=== PATIENT | female | born 1990 | race Hispanic/Latino ===

== ENCOUNTER 2017-09-25 01:16 | Emergency (ER) | payer BC ==
[~2017-09-25] VITALS: Ht 162.6 cm; Wt 54.4 kg
[2017-09-25] MEDS ORDERED: DICYCLOMINE HCL 20 MG TAB PO ONE (01:30)
[2017-09-25] MEDS ORDERED: ONDANSETRON HCL INJ 2 MG/ML VIAL IV ONE (01:30)
[2017-09-25] MEDS ORDERED: SODIUM CHLORIDE 0.9% 1000ML 1,000 ML ONE (01:30)
[2017-09-25] MEDS ORDERED: ZOFRAN ODT4 MG SL (01:46)
[2017-09-25] MEDS ORDERED: SODIUM CHLORIDE 0.9% 1000ML 1,000 ML IV SCH (02:15)
[2017-09-25] MEDS ORDERED: PROMETHAZINE HCL 25 MG TAB PO STA (03:04)
[2017-09-25 03:44] VITALS: BP 125/72
== END 2017-09-25 03:45 | disposition home or self-care (01) ==
LOC: FSED 01:16
DX: A08.0 Rotaviral enteritis (principal); E86.0 Dehydration; E87.6 Hypokalemia; D72.829 Elevated white blood cell count, unspecified
CPT/HCPCS: 80053; 81003; 81025; 85025; 93005; 96360; 96374; 99283; J2405; J7030